=== PATIENT | male | born 1975 | race Caucasian/White ===

== ENCOUNTER 2016-07-12 04:25 | Emergency (ER) | payer OTHER ==
[~2016-07-12] VITALS: Ht 182.9 cm; Wt 90.7 kg
[~2016-07-12 04:25] MED LIST: ALPRAZOLAM0.5 MG PO; OXYCODONE HCL30 MG PO; PERCOCET 325 MG1 TAB PO; XANAX0.5 MG PO; ZOFRAN ODT4 MG PO
--- NOTE | 2016-07-12 04:32 | ED MVC/FALL/TRAUMA COMPLAINT ---
History of Present Illness General Chief Complaint: Facial or Head Injury Stated Complaint: HEAD INJURY,FELL DOWN 10 CEMENT STEPS Source: patient Exam Limitations: no limitations Vital Signs & Intake/Output Vital Signs & Intake/Output Vital Signs Date Time Temp Pulse Resp B/P Pulse O2 O2 Flow FiO2 Ox Delivery Rate 07/12 0612 97.1 78 16 148/98 97 Room Air 07/12 0434 97.1 77 18 157/110 95 Room Air Allergies Coded Allergies: MDX - Diphenhydramine (From BENADRYL) (Intermediate, MOTHER TOLD ME NOT TO TAKE 02/26/15) MDX - Acetaminophen (From VICODIN) (Intermediate, GI UPSET 02/26/15) MDX - Hydrocodone (From VICODIN) (Intermediate, GI UPSET 02/26/15) Reconcile Medications Alprazolam 0.5 MG TAB 1 TAB PO TID PRN anxiety twenty...[id number] Alprazolam (Xanax) 0.5 MG TAB 1 TAB PO BID PRN ANXIETY Losartan (Cozaar) 100 MG TABLET 100 MG PO D HTN (Reported) Ondansetron (Zofran Odt) 4 MG TAB.RAPDIS 1 TAB SL TID PRN nausea Ondansetron (Zofran Odt) 4 MG ODT 1-2 TAB PO Q6H PRN NAUSEA Oxycodone HCl (Oxycontin) (Unknown Strength) TAB.ER.12H (Unknown Dose) PAIN ( Reported) Oxycodone HCl 15 MG TABLET 1 TAB PO 4XDP PAIN TEN...[id number] OXYCODONE HCL (Oxycodone HCl) 30 MG TAB 1 TAB PO Q4 PRN pain twenty tabs... [id number] OXYCODONE HCL/ACETAMINOPHEN (Percocet 10-325 MG Tablet) 325 MG/10 MG TAB 1 TAB PO TID PRN PAIN TWENTY...[id number] OXYCODONE HCL/ACETAMINOPHEN (Percocet 10-325 MG Tablet) 325 MG/10 MG TAB 1-2 TAB PO Q6H PRN PAIN Triage Nurses Notes Reviewed? yes Onset: Abrupt Duration: day(s):, waxing and waning Timing: recent history Severity: moderate Injuries/Fall Location: head, neck, back, pelvis Method of Injury: fall Loss of Consciousness: no loss of consciousness Modifying Factors: Worsens With: movement. Associated Symptoms: back pain neck pain and headache pelvic pain after a fall. HPI: 41-year-old gentleman history of chronic back pain states that he fell approximately 10 steps on 07/08/2016. He states he was intoxicated at the time but has not had any alcohol since. He notes pain in the back of his head his neck throughout his back and around his right pelvis. He is able to ambulate but notes pain. He states that he is on disability due to his back pain. He has no loss of bowel or bladder function. He has no radiating pain. He is otherwise well. Past History Travel History Traveled to [place] past 21 day No Medical History Any Pertinent Medical History? see below for history Neurological: NONE EENT: NONE Cardiovascular: hypertension Respiratory: NONE Gastrointestinal: NONE Hepatic: NONE Renal: NONE Musculoskeletal: disk herniation, degen joint disease, DDD Psychiatric: NONE Endocrine: NONE Surgical History Surgical History: N Psychosocial History What is your primary language Gabonese Family History Hx Contributory? No Review of Systems Review of Systems Constitutional: Reports: no symptoms. Eyes: Reports: no symptoms. Ears, Nose, Throat, Mouth: Reports: no symptoms. Respiratory: Reports: no symptoms. Cardiovascular: Reports: no symptoms. Gastrointestinal/Abdominal: Reports: no symptoms. Genitourinary: Reports: no symptoms. Musculoskeletal: Reports: no symptoms. Skin: Reports: no symptoms. Neurological/Psychological: Reports: no symptoms. All Other Systems: Reviewed and Negative Physical Exam Physical Exam General Appearance: well developed/nourished, mild distress Head: atraumatic, normal appearance Eyes: Bilateral: normal appearance, PERRL, EOMI. Ears, Nose, Throat, Mouth: hearing grossly normal, moist mucous membrane Neck: normal inspection, supple, paraspinous muscle tender, no midline tenderness Respiratory: normal breath sounds, chest non-tender Cardiovascular: regular rate/rhythm Gastrointestinal: normal bowel sounds, soft, non-tender Back: normal inspection, normal range of motion, muscle spasm, moderate muscle spasm and paravertebral tenderness palpation. Extremities: normal range of motion Neurologic/Psych: no motor/sensory deficits, awake, alert, oriented x 3 Skin: intact, normal color Core Measures ACS in differential dx? No Severe Sepsis Present: No Septic Shock Present: No Progress Differential Diagnosis: muscle spasm versus contusion versus other Plan of Care: Orders Procedure Date/time Status CT THOR SPINE WO IV CONTRAST 07/[address] LUMB SPINE WO IV CONTRAST 07/[address] HEAD WO IV CONTRAST 07/[address] CERV SPINE WO IV CONTRAST 07/12 432 Active Diagnostic Imaging: Viewed by Me: Radiology Read, CT Scan. Discussed w/RAD: Radiology Read, CT Scan. Radiology Impression: ap pelvis... no fx. , head/cervical/throco/lumbar ct... no fx. Comments: PATIENT: DONTE LOVE JR PRESENT AGE: 41 PATIENT ACCOUNT NO: [id number] : 75 LOCATION: [facility] ORDERING PHYSICIAN: ROQUE MURPHY MD SERVICE DATE: 07/12/16 EXAM TYPE: CAT - CT CERV SPINE WO IV CONTRAST; CT HEAD WO IV CONTRAST EXAMINATIONS: CT HEAD WITHOUT CONTRAST AND CT CERVICAL SPINE WITHOUT CONTRAST CLINICAL INFORMATION: Pain after fall. COMPARISON: None. TECHNIQUE: Contiguous helical images of the brain were obtained without IV contrast. Contiguous helical images of the cervical spine were obtained without IV contrast. Multiplanar reconstructions were performed. DLP: 286 mGy-cm. FINDINGS: There are no pathologic extra-axial fluid collections. The lateral, third, fourth ventricles are nondilated and concordant with the appearance of the sulci. There is no evidence for acute intraparenchymal hemorrhage or infarct. There is neither mass nor mass effect. There is no shift of midline structures. The paranasal sinuses and mastoid air cells are clear. There are no osseous lesions. The cervical vertebra are in normal alignment. Disc heights and vertebral heights are well-preserved. There are no fractures. There is no prevertebral soft tissue swelling. There is no cervical lymphadenopathy. The visualized lung apices are clear. IMPRESSION: No evidence for acute intracranial injury. No evidence for acute injury to the cervical spine. DICTATED BY: ESTELA MCLEOD MD DATE/TIME DICTATED:07/12/16533 JOINERY SETTER OUT:MELISSA DATE/TIME TRANSCRIBED:07/12/16533 CONFIDENTIAL, DO NOT COPY WITHOUT APPROPRIATE AUTHORIZATION. <Electronically signed in Other Vendor System> SIGNED BY: ESTELA MCLEOD MD 07/12/1640 PATIENT: DONTE LOVE JR PRESENT AGE: 41 PATIENT ACCOUNT NO: [id number] : 75 LOCATION: [facility] ORDERING PHYSICIAN: ROQUE MURPHY MD SERVICE DATE: 07/12/16 EXAM TYPE: CAT - CT LUMB SPINE WO IV CONTRAST; CT THOR SPINE WO IV CONTRAST EXAMINATION: THORACIC SPINE AND LUMBAR SPINE CT CLINICAL INFORMATION: Pain after fall. COMPARISON: None. TECHNIQUE: Contiguous helical images of the thoracic and lumbar vertebra were obtained without IV contrast. Multiplanar reconstructions were performed. FINDINGS: The thoracic and lumbar vertebra are in normal alignment. Disc heights and vertebral body heights are well-preserved. There are no acute fractures. Within the visualized thorax, the heart is not enlarged. There is no demonstrable pericardial effusion. The visualized lungs are clear. IMPRESSION: No evidence for acute injury to the thoracic or lumbar vertebra. DICTATED BY: ESTELA MCLEOD MD DATE/TIME DICTATED:07/12/16536 JOINERY SETTER OUT:MELISSA DATE/TIME TRANSCRIBED:07/12/16536 CONFIDENTIAL, DO NOT COPY WITHOUT APPROPRIATE AUTHORIZATION. <Electronically signed in Other Vendor System> SIGNED BY: ESTELA MCLEOD MD 07/12/16542 PATIENT: DONTE LOVE JR PRESENT AGE: 41 PATIENT ACCOUNT NO: [id number] : 75 LOCATION: [facility] ORDERING PHYSICIAN: ROQUE MURPHY MD SERVICE DATE: 07/12/16 EXAM TYPE: RAD - XRY-AP PELVIS EXAMINATION: PELVIS 1 VIEW CLINICAL INFORMATION: Pelvic pain after fall. COMPARISON: None. TECHNIQUE: A supine view of the pelvis is provided. FINDINGS: There are no fractures. Both femoral heads are seated within well-formed acetabula. No dysplastic changes are identified. The visualized bowel gas pattern is unremarkable. IMPRESSION: Unremarkable pelvic radiograph. DICTATED BY: ESTELA MCLEOD MD DATE/TIME DICTATED:07/12/16533 JOINERY SETTER OUT:MELISSA DATE/TIME TRANSCRIBED:07/12/16533 CONFIDENTIAL, DO NOT COPY WITHOUT APPROPRIATE AUTHORIZATION. <Electronically signed in Other Vendor System> SIGNED BY: ESTELA MCLEOD MD 07/12/16536 Departure Departure Disposition: HOME OR SELF CARE Condition: Stable Clinical Impression Primary Impression: Fall Secondary Impressions: Back pain, Head injury Referrals: UNKNOWN Departure Forms: Customer Survey General Discharge Information Prescriptions: Current Visit Scripts Oxycodone HCl 1 TAB PO 4XDP #10 TAB TEN...[id number] Ondansetron (Zofran Odt) 1 TAB SL TID PRN nausea #10 TAB Ref 1 Comments pt with negative scans, able to ambulate... I gave rx for oxycodone as a bridge to his primary care and pain management appointments.
[2016-07-12] MEDS ORDERED: COZAAR100 M1 PO (04:38)
[2016-07-12] MEDS ORDERED: OXYCONTIN10 M1 (04:38)
--- NOTE | 2016-07-12 05:37 | RADIOLOGY REPORT ---
EXAMINATION: PELVIS 1 VIEW CLINICAL INFORMATION: Pelvic pain after fall. COMPARISON: None. TECHNIQUE: A supine view of the pelvis is provided. FINDINGS: There are no fractures. Both femoral heads are seated within well-formed acetabula. No dysplastic changes are identified. The visualized bowel gas pattern is unremarkable. IMPRESSION: Unremarkable pelvic radiograph.
--- NOTE | 2016-07-12 05:40 | CT SCAN REPORT ---
EXAMINATIONS: CT HEAD WITHOUT CONTRAST AND CT CERVICAL SPINE WITHOUT CONTRAST CLINICAL INFORMATION: Pain after fall. COMPARISON: None. TECHNIQUE: Contiguous helical images of the brain were obtained without IV contrast. Contiguous helical images of the cervical spine were obtained without IV contrast. Multiplanar reconstructions were performed. DLP: 286 mGy-cm. FINDINGS: There are no pathologic extra-axial fluid collections. The lateral, third, fourth ventricles are nondilated and concordant with the appearance of the sulci. There is no evidence for acute intraparenchymal hemorrhage or infarct. There is neither mass nor mass effect. There is no shift of midline structures. The paranasal sinuses and mastoid air cells are clear. There are no osseous lesions. The cervical vertebra are in normal alignment. Disc heights and vertebral heights are well-preserved. There are no fractures. There is no prevertebral soft tissue swelling. There is no cervical lymphadenopathy. The visualized lung apices are clear. IMPRESSION: No evidence for acute intracranial injury. No evidence for acute injury to the cervical spine.
--- NOTE | 2016-07-12 05:43 | CT SCAN REPORT ---
EXAMINATION: THORACIC SPINE AND LUMBAR SPINE CT CLINICAL INFORMATION: Pain after fall. COMPARISON: None. TECHNIQUE: Contiguous helical images of the thoracic and lumbar vertebra were obtained without IV contrast. Multiplanar reconstructions were performed. FINDINGS: The thoracic and lumbar vertebra are in normal alignment. Disc heights and vertebral body heights are well-preserved. There are no acute fractures. Within the visualized thorax, the heart is not enlarged. There is no demonstrable pericardial effusion. The visualized lungs are clear. IMPRESSION: No evidence for acute injury to the thoracic or lumbar vertebra.
[2016-07-12] MEDS ORDERED: OXYCODONE HCL15 M1 PO (06:00)
[2016-07-12] MEDS ORDERED: ZOFRAN ODT4 M1 SL (06:02)
[2016-07-12 06:12] VITALS: BP 148/98
== END 2016-07-12 06:13 ==
LOC: ERH 04:25
DX: S09.90XA Unspecified injury of head, initial encounter (principal); M54.9 Dorsalgia, unspecified; W10.9XXA Fall (on) (from) unspecified stairs and steps, initial encounter
CPT/HCPCS: 72170